=== PATIENT | male | born 1955 | race Caucasian/White ===

== ENCOUNTER 2023-04-12 07:12 | Emergency (ER) | payer MEDICARE ==
[~2023-04-12] VITALS: Ht 182.9 cm; Wt 87.2 kg
[2023-04-12] MEDS ORDERED: NITROGLYCERIN 0.4MG SUBL TABLET SL PRN (07:25)
[2023-04-12 07:35] VITALS: BP 130/60
[2023-04-12] MEDS ORDERED: MORPHINE 4 MG/ML 1ML VIAL IV PRN (07:40)
[2023-04-12] MEDS ORDERED: ASPIRIN 81MG CHEW TABLET PO ONE ×3 (07:40→07:50)
[2023-04-12] MEDS ORDERED: ONDANSETRON 4MG 2ML VIAL IV ONE (07:40)
[2023-04-12] MEDS ORDERED: NS 500 ML IV ONE ×2 (07:50→09:20)
[2023-04-12 07:55] LABS: BASO % 0.2 % (0.0-1.0); EOS # 0.1 10^3/uL (0.0-0.5); EOS % 0.8 % (0.0-3.0); HEMATOCRIT 49.2 % (42.0-52.0); HEMOGLOBIN 17.4 g/dl (13.5-17.5); MEAN CORPUSCULAR HEMOGLOBIN 32.5 pg (27.0-33.0); MEAN CORPUSCULAR HGB CONC 35.4 g/dl (32.0-36.5); MONO # 0.9 10^3/uL (0.0-0.8); MONO % 7.2 % (2.0-8.0); NEUTROPHILS # 10.6 10^3/uL (1.5-8.5); NEUTROPHILS % 83.4 % (36.0-66.0); PLATELET COUNT, AUTOMATED 189 10^3/uL (150-450); RED BLOOD COUNT 5.35 10^6/uL (4.30-6.10); WHITE BLOOD COUNT 12.7 10^3/uL (4.0-10.0)
[2023-04-12] MEDS ORDERED: IBUP80TA (08:01)
[2023-04-12] MEDS ORDERED: LISI20TA37 (08:01)
[2023-04-12] MEDS ORDERED: GUSE100A (08:01)
[2023-04-12] MEDS ORDERED: ALLO100T (08:01)
[2023-04-12] MEDS ORDERED: ATEN50TA2 (08:01)
[2023-04-12 08:40] LABS: BLOOD UREA NITROGEN 22 MG/DL (9-23); CARBON DIOXIDE LEVEL 19 MMOL/L (20-31); CHLORIDE LEVEL 96 MMOL/L (98-107); CK-MB VALUE MASS 8.4 NG/ML (<3.6); CPK CREATINE PHOSPHOKINASE 484 U/L (46-171); GLOMERULAR FILTRATION RATE > 60.0 (>49); GLUCOSE, FASTING 130 MG/DL (74-106); MB/CK RELATIVE INDEX 1.73 (< OR =4); POTASSIUM SERUM 5.2 MMOL/L (3.5-5.1); SODIUM LEVEL 129 MMOL/L (136-145)
[2023-04-12 09:09] LABS: CK-MB VALUE MASS 6.4 NG/ML (<3.6)
[2023-04-12 09:11] LABS: MB/CK RELATIVE INDEX 1.7 (< OR =4)
[2023-04-12] MEDS ORDERED: ISOVUE-370 76% 100ML VIAL As Ordered ONE (09:25)
[2023-04-12 10:52] LABS: CPK CREATINE PHOSPHOKINASE 342 U/L (46-171); MB/CK RELATIVE INDEX 2.04 (< OR =4)
[2023-04-12] MEDS ORDERED: KETOROLAC 30 MG/ML 1ML VIAL IV ONE (11:15)
[2023-04-12 12:00] VITALS: BP 114/69; TEMP 98; O2SAT 94
[2023-04-12] MEDS ORDERED: HOME MED LIST COMPLETE! XX SCH (12:05)
== END 2023-04-12 12:08 | disposition home or self-care (01) ==
LOC: M ED 07:12
DX: R07.89 Other chest pain (principal); I10 Essential (primary) hypertension; F17.200 Nicotine dependence, unspecified, uncomplicated; Z79.899 Other long term (current) drug therapy
CPT/HCPCS: 71045; 71275; 80048; 82550; 82553; 84484; 85025; 93005; 93041; 94760; 96365; 96366; 96375; 99285; J1885; J2405; Q9967